=== PATIENT | male | born 2000 | race Hispanic/Latino ===

== ENCOUNTER 2021-11-01 01:16 | Emergency (ER) | payer OTHER ==
--- NOTE | 2021-11-01 01:53 | XRay Report ---
XR foot 3+V RT INDICATION / CLINICAL INFORMATION: INJURY COMPARISON: None available. FINDINGS: BONES / JOINT(S): No acute fracture or subluxation. Lisfranc interval is maintained. No significant a rthritis. SOFT TISSUES: No significant abnormality. ADDITIONAL FINDINGS: None. IMPRESSION: No acute osseous findings of the right foot. Signer Name: Matthew Conklin MD Signed: 11/01/2021 1:48 AM Workstation Name: [id number]
[2021-11-01] MEDS ORDERED: traMADol 50 MG TAB PO ONE (05:19)
--- NOTE | 2021-11-01 05:37 | Emergency Department Report ---
ED Lower Extremity HPI - General Chief Complaint: Extremity Injury, Lower Stated Complaint: PROPANE TANK FELL ON RIGHT FOOT Time Seen by Provider: 11/01/21 05:20 Source: patient Mode of arrival: Ambulatory Limitations: No Limitations - History of Present Illness Initial Comments: Is a 21-year-old male who presents for right foot pain status post work injury. States propane tank fell knocking him on his dorsal right fifth impacted his great toe second toe third toe and fourth toe. Now with pain 7/10 exacerbated by movement. Patient is partial weightbearing at this time. There is erythema and swelling. There is no abrasion laceration or bleeding. Patient arrived via POV and co-worker. 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 Patient denies other injury. MD Complaint: foot injury - Related Data Previous Rx's Medication Instructions Recorded Last Taken Type Acetaminophen/Codeine [Tylenol 1 tab PO Q6H PRN #12 tab 11/01/21 Unknown Rx /Codeine # 3 tab] Naproxen [Naprosyn] 500 mg PO BID PRN #30 tablet NS 11/01/21 Unknown Rx Allergies Allergy/AdvReac Type Severity Reaction Status Date / Time No Known Allergies Allergy Verified 11/01/21 01:20 ED Review of Systems ROS: Stated complaint: PROPANE TANK FELL ON RIGHT FOOT Other details as noted in HPI Constitutional: denies: chills, fever Eyes: denies: eye pain, eye discharge, vision change ENT: denies: ear pain, throat pain Respiratory: denies: cough, shortness of breath, wheezing Cardiovascular: denies: chest pain, palpitations Endocrine: no symptoms reported Gastrointestinal: denies: abdominal pain, nausea, diarrhea Genitourinary: denies: urgency, dysuria Musculoskeletal: other (Foot pain and swelling) Skin: change in color (Contusion right dorsal foot). denies: rash, lesions Neurological: denies: headache, weakness, paresthesias Psychiatric: as per HPI Hematological/Lymphatic: denies: easy bleeding, easy bruising ED Past Medical Hx - Medications Home Medications: Home Medications Medication Instructions Recorded Confirmed Last Taken Type Acetaminophen/Codeine [Tylenol 1 tab PO Q6H PRN #12 tab 11/01/21 Unknown Rx /Codeine # 3 tab] Naproxen [Naprosyn] 500 mg PO BID PRN #30 tablet NS 11/01/21 Unknown Rx ED Physical Exam - General Limitations: No Limitations General appearance: alert, in no apparent distress - Head Head exam: Present: normocephalic, normal inspection - Eye Eye exam: Present: PERRL, EOMI. Absent: conjunctival injection, nystagmus Pupils: Present: normal accommodation - ENT ENT exam: Present: mucous membranes moist - Neck Neck exam: Present: normal inspection, full ROM. Absent: tenderness (No posterior vertebral point tenderness range of motion is intact and unrestricted to all quadrants no crepitus no ecchymosis no step-off.), meningismus - Respiratory Respiratory exam: Present: normal lung sounds bilaterally. Absent: respiratory distress, wheezes, chest wall tenderness - Cardiovascular Cardiovascular Exam: Present: regular rate, normal rhythm, normal heart sounds. Absent: systolic murmur, diastolic murmur, rubs, gallop - GI/Abdominal GI/Abdominal exam: Present: soft, normal bowel sounds. Absent: distended, tenderness - Rectal Rectal exam: Present: deferred - Extremities Exam Extremities exam: Present: tenderness (Right dorsal foot), normal capillary refi ll - Expanded Lower Extremity Exam Right Foot/Toe exam: Present: tenderness, swelling, ecchymosis, erythema. Absent: abrasion, laceration, deformity, crepidus, dislocation, amputation, puncture wound, foreign body, calcaneal tenderness, tenderness at base of 5th metatarsal, nail avulsion, subungual hematoma Neuro vascular tendon exam: Absent: pulse deficit, motor deficit, sensory deficit, tendon deficit, foot drop Gait: Positive: observed and limited by pain - Back Exam Back exam: Present: normal inspection, full ROM. Absent: muscle spasm, paraspinal tenderness (No posterior vertebral point tenderness. ), vertebral tenderness - Expanded Back Exam Expanded Back exam: Absent: saddle anesthesia Back exam: Negative Straight Leg Raising: Left, Right - Neurological Exam Neurological exam: Present: alert, oriented X3, CN II-XII intact, reflexes normal. Absent: motor sensory deficit - Expanded Neurological Exam Expanded Patient oriented to: Present: person, place, time Speech: Present: fluid speech Motor strength exam: RUE: 5, LUE: 5, RLE: 5, LLE: 5 DTR: ankle (R): 1+, ankle (L): 1+ Best Eye Response (Omero): (4) open spontaneously Best Motor Response (Omero): (6) obeys commands Best Verbal Response (Omero): (5) oriented Speculator Total: 15 - Psychiatric Psychiatric exam: Present: normal affect, normal mood - Skin Skin exam: Present: warm, dry, intact, normal color. Absent: rash ED Course Vital Signs 11/01/21 11/01/21 01:19 05:26 Temperature 98.7 F Pulse Rate 105 H Respiratory 18 16 Rate Blood Pressure 181/97 O2 Sat by Pulse 98 Oximetry ED Lower Extremity MDM - Radiology Data Radiology results: report reviewed, image reviewed XR foot 3+V RT INDICATION / CLINICAL INFORMATION: INJURY COMPARISON: None available. FINDINGS: BONES / JOINT(S): No acute fracture or subluxation. Lisfranc interval is maintained. No significant arthritis. SOFT TISSUES: No significant abnormality. ADDITIONAL FINDINGS: None. IMPRESSION: No acute osseous findings of the right foot. Signer Name: Aleyda Delcid MD Signed: 11/01/2021 1:48 AM Workstation Name: [id number] Transcribed By: NICKOLAS Dictated By: ALEYDA DELCID MD Electronically Authenticated By: ALEYDA DELCID MD Signed Date/Time: 11/01/21147 DD/ 6 TD/TT: - Medical Decision Making X-ray right foot no fracture no subluxation no dislocation. Distal pulses intact +2 [employer] less than 2 seconds bilateral plan Carter wrap, crutches, RICE therapy, follow-up with primary care doctor in 2 to 3 days. Return to emergency department should symptoms worsen. Patient verbalizes agreement and understanding of discharge plan. Patient demonstrates safe use of crutches. Patient DC'd in stable condition at this time will follow up with primary care doctor in 2 to 3 days. As directed by your Workmen's Comp via employer Critical care attestation.: If time is entered above; I have spent that time in minutes in the direct care of this critically ill patient, excluding procedure time. ED Disposition Clinical Impression: Sprain of foot, right Qualifiers: Encounter type: initial encounter Qualified Code(s): S93.601A - Unspecified sprain of right foot, initial encounter Disposition: HOME / SELF CARE / HOMELESS Is pt being admited?: No Does the pt Need Aspirin: No Condition: Stable Instructions: Elastic Bandage and RICE Therapy, Foot Sprain, How to Use Cold Therapy, [id number], Crutch Use, Adult Additional Instructions: Take medications as prescribed, rice therapy as directed. Use crutches as directed. Follow-up with your Workmen's Comp. doctor as directed by your employer. Return to emergency department should symptoms worsen. Prescriptions: Naproxen [Naprosyn] 500 mg PO BID PRN #30 tablet NS PRN Reason: pain Acetaminophen/Codeine [Tylenol /Codeine # 3 tab] 1 tab PO Q6H PRN #12 tab PRN Reason: severe pain Referrals: IRAIDA DELEON MD [Staff Physician] - 3-5 Days Forms: Work/School Release Form(ED) Time of Disposition: 05:44
[2021-11-01 06:01] VITALS: BP 174/89
== END 2021-11-01 06:09 | disposition home or self-care (01) ==
LOC: ED 01:16
DX: S93.601A Unspecified sprain of right foot, initial encounter (principal); X58.XXXA Exposure to other specified factors, initial encounter; Y93.89 Activity, other specified; Y92.89 Other specified places as the place of occurrence of the external cause; Y99.8 Other external cause status
CPT/HCPCS: 99283